=== PATIENT | female | born 1995 | race Caucasian/White ===

== ENCOUNTER 2016-04-01 14:51 | Emergency (ER) | payer SELFPAY ==
[2016-04-01 16:02] VITALS: BP 145/81; PULSE 88; TEMP 98.3; BMI 34.4
--- NOTE | 2016-04-01 16:31 | EDPRACDOC ---
- General Information Chief Complaint: Earache Stated Complaint: RT EAR PAIN ? RUPTURED EARDRUM Time Seen by Provider: 04/01/16 16:24 Information Source: Patient Mode of Arrival: Car Home Medications: Home Medications Neomy Sulf/Polymyx B Sulf/Hc [Cortisporin Ear Solution] 4 drops AD Q6H #1 bot Allergies/Adverse Reactions: Allergies Allergy/AdvReac Type Severity Reaction Status Date / Time No Known Allergies Allergy Verified 04/01/16 16:01 - History of Present Illness Onset: 1 week HPI: PT COMPLAINS OF BILATERAL EAR PAIN AND ITCHING OFF/ON SINCE JUNE OF LAST YEAR, PT STATES LEFT EAR HAS BECOME EXTREMELY PAINFUL OVER THE LAST WEEK WITH "WHITE" DISCHARGE, NO FEVER OR CHILLS, NO COUGH, CONGESTION, SORE THROAT, USING NAPROXEN WITHOUT RELIEF. Location: left ear Context: Reports: Spontaneous Onset Recently Treated Ear Infection: Reports: No Pain Severity: Reports: Severe Associated Signs & Symptoms: Reports: Discharge. Denies: Fever, Chills, Runny Nose, Sore Throat, Toothache ED Past Medical History - History Reviewed Yes Nurses notes reviewed and agree except as marked - Patient Medical History Neurological History: Reports: Migraine Respiratory History: Reports: Asthma Psychological History: Denies: Depression Surgical History: Reports: Other (LEFT ARM) - Social Medical History Smoking Status: Never smoker EDM Review of Systems - Review of Systems Constitutional: negative: Chills, Fever Eyes: negative: Blurred Vision, Double Vision Ears: Drainage, Pain. negative: Hearing Loss, Tinnitus Throat: negative: Pain Nose: negative: Congestion, Discharge Respiratory: negative: Cough, Shortness of Breath, Wheezing Neurological: negative: Dizziness, Headache, Numbness, Weakness Musculoskeletal: No Symptoms Reported Integumentary: No Symptoms Reported - Physical Exam Constitutional: Alert (Awake), No apparent distress Oriented to: Time, Person, Place Last recorded Vital Signs: Last Vital Signs Temp 98.3 F 04/01/16 15:59 Pulse 88 04/01/16 15:59 Resp 18 04/01/16 15:59 BP 145/81 04/01/16 15:59 Pulse Ox 96 04/01/16 15:59 Oxygen Pulse Oxygen Saturation 96 O2 Device Oxygen Flow Rate Fraction of Inspired Oxygen ( FIO2) - HEENT Head: Normal ( normocephalic) Eye Exam: Normal (PERRL, EOMI, Sclera white) Oropharynx: Normal (Pharynx:Moist without exudate,Gums-no swelling) Tympanic Membrane: Normal ENT EAC: Swelling, Tender (LEFT) TMJ: Normal Nose: No Symptoms Reported (septum midline) Neck: Normal (FROM, trachea at midline) - Respiratory/Cardiovascular Respiratory: Normal - CTA (BBS clear to auscultation without adventitious sounds ) Cardiovascular: Normal (RRR without murmur, gallop or rub) - Integumentary Skin: Normal, Warm, Dry Lymphatics: Normal (no adenopathy) - Neurologic Memory Impaired: Normal Motor Function: Normal (Normal tone, Pulses 2+ No cyanosis or edema, FROM) Cranial Nerve: Normal (CN II-X11 intact sensation, strength 5/5) Cerebellar: Normal Mood Description: Normal Perception: Normal - Differential Diagnosis Otitis Externa, Otitis Media, Perforation Decision Time to Discharge: 16:31 - Departure Disposition: Home Condition: Stable Final Diagnosis: Otitis externa Qualifiers: Otitis externa type: unspecified type Laterality: left Chronicity: acute Qualified Code(s): H60.502 - Unspecified acute noninfective otitis externa, left ear Instructions: Otitis Externa (ED) Education/Counseling Given To: Patient Education/Counseling Given Regarding: Diagnosis, Treatment, Prognosis, Follow Up Referrals: Jazzy Sheffield MD [Primary Care Provider] - One Week Prescriptions: Neomy Sulf/Polymyx B Sulf/Hc [Cortisporin Ear Solution] 4 drops AD Q6H #1 bot Additional Instructions: CONTINUE TO USE NAPROXEN NEEDED FOR PAIN, APPLY WARM COMPRESSES NEEDED FOR PAIN.
== END 2016-04-01 17:03 | disposition home or self-care (01) ==
LOC: EDMC 14:51
DX: H60.502 Unspecified acute noninfective otitis externa, left ear (principal)
CPT/HCPCS: 99282